=== PATIENT | male | born 1990 | race Caucasian/White ===

== ENCOUNTER 2022-01-10 03:53 | Emergency (ER) | payer MEDICAID ==
[~2022-01-10] VITALS: Ht 180.3 cm; Wt 106.8 kg
[~2022-01-10 03:53] MED LIST: HYDR-4383 PO
[2022-01-10 03:58] VITALS: BP 137/86
[2022-01-10] MEDS ORDERED: bacitracin 15gm ointment TP ONE (04:40)
[2022-01-10] MEDS ORDERED: ondansetron 4mg rapidly disintigrating tab PO ONE (04:40)
[2022-01-10] MEDS ORDERED: TETanus/Pertussis (Acell)/Diphther VAC/PF (Tdap-Adult) 0.5ml syringe IMVAC ONE (04:40)
[2022-01-10] MEDS ORDERED: sulfamethoxazole/trimethoprim DS (800/160mg) tablet PO ONE (04:40)
[2022-01-10] MEDS ORDERED: SULF1TAB49 PO ×2 (05:09→05:18)
== END 2022-01-10 05:20 | disposition home or self-care (01) ==
LOC: ER 03:54
DX: L02.413 Cutaneous abscess of right upper limb (principal); Z88.5 Allergy status to narcotic agent
CPT/HCPCS: 10060; 90471; 90715; 99284; A6449

== ENCOUNTER 2022-03-08 14:38 | Emergency (ER) | payer MEDICAID ==
[~2022-03-08] VITALS: Ht 180.3 cm; Wt 106.0 kg
[2022-03-08 14:47] VITALS: BP 133/92
== END 2022-03-08 16:31 | disposition left against medical advice (07) ==
LOC: ER 14:39
DX: L02.413 Cutaneous abscess of right upper limb (principal); Z53.21 Procedure and treatment not carried out due to patient leaving prior to being seen by health care provider

== ENCOUNTER 2022-04-04 13:29 | Emergency (ER) | payer MEDICAID ==
[~2022-04-04] VITALS: Ht 180.3 cm; Wt 118.0 kg
[2022-04-04 13:34] VITALS: BP 125/72
[2022-04-04] MEDS ORDERED: normal saline 1000ml 1,000 ML IV ONE (15:00)
[2022-04-04] MEDS ORDERED: ondansetron/PF 4mg/2ml inj IV ONE (15:00)
[2022-04-04] MEDS ORDERED: ACET-890 PO (15:53)
[2022-04-04] MEDS ORDERED: ONDA4TAB12 PO (15:53)
[2022-04-04] MEDS ORDERED: acetaminophen 325mg tablet PO ONE (17:25)
== END 2022-04-04 17:36 | disposition home or self-care (01) ==
LOC: ER 13:30
DX: A05.9 Bacterial foodborne intoxication, unspecified (principal); Z88.5 Allergy status to narcotic agent; Z59.00 Homelessness unspecified
CPT/HCPCS: 96360; 96374; 99283; J2405; J7030